=== PATIENT | male | born 1970 | race Two or more races ===

== ENCOUNTER 2023-07-04 18:11 | Inpatient (IN) | payer OTHER ==
[~2023-07-04] VITALS: Ht 175.3 cm; Wt 65.0 kg
[2023-07-04] MEDS ORDERED: LISI-894 PO (18:19)
[2023-07-04] MEDS ORDERED: SODIUM CHLORIDE 0.9% 2,000 ML IV ONE (20:30)
[2023-07-04] MEDS ORDERED: SODIUM CHLORIDE 0.9% 1,000 ML IV ONE (20:30)
[2023-07-04 20:57] LABS: BASOPHILS % (AUTO) 0.3 % (0.0-2.0); EOSINOPHILS % (AUTO) 0.4 % (1.0-6.0); HEMATOCRIT 30.5 % (41-53); HEMOGLOBIN 9.9 g/dL (13.5-17.5); LYMPHOCYTES # (AUTO) 0.8 K/uL (1.0-4.8); LYMPHOCYTES % (AUTO) 13.7 % (22.0-44.0); MEAN CORPUSCULAR HEMOGLOBIN 28.1 pg (26.0-34.0); MEAN CORPUSCULAR HGB CONC 32.4 G/dL (31.0-37.0); MEAN CORPUSCULAR VOLUME 87 fL (80-100); MONOCYTES # (AUTO) 0.4 K/uL (0.1-1.0); MONOCYTES % (AUTO) 7.1 % (2.0-9.0); NEUTROPHILS # (AUTO) 4.7 K/uL (1.8-7.7); NEUTROPHILS % (AUTO) 78.5 % (40.0-70.0); PLATELET COUNT (AUTO) 195 K/uL (150-450); RED BLOOD CELL COUNT(AUTO) 3.52 MIL/uL (4.50-5.90); RED CELL DISTRIBUTION WIDTH 16.2 % (11.5-14.5)
[2023-07-04 21:07] LABS: ANION GAP 9 mmol/L (8-16); CALCIUM, TOTAL 8.1 mg/dL (8.8-10.5); CARBON DIOXIDE 27 mmol/L (22-29); CHLORIDE 99 mmol/L (98-107); CREATININE 1.98 mg/dL (0.60-1.30); GLOMERULAR FILTR. RATE CALC 36 mL/min (>60); GLUCOSE,RANDOM 83 mg/dL (70-110); POTASSIUM 4.3 mmol/L (3.5-5.1); SODIUM SERUM 135 mmol/L (136-145); UREA NITROGEN, BLOOD 35 mg/dL (7-18)
[2023-07-04 21:11] LABS: B-TYPE NATRIURETIC PEPTIDE 19 pg/mL (0-100)
[2023-07-04 21:12] LABS: ALCOHOL, BLOOD (SERUM) < 3 mg/dL (0-10)
[2023-07-04 21:15] LABS: LACTIC ACID 1.6 mmol/L (0.4-2.0)
[2023-07-04 21:17] LABS: TROPONIN I-HIGH SENSITIVITY 90 ng/L (<76)
[2023-07-04 21:22] LABS: COVID AG,FIA SOURCE NASOPHARYNGEAL
[2023-07-04 21:29] LABS: ALANINE AMINOTRANSFERASE 18 U/L (12-78); ALBUMIN 2.8 g/dL (3.4-5.0); ALKALINE PHOSPHATASE 71 U/L (46-116); ASPARTATE AMINOTRANSFERASE 28 U/L (15-37); BILIRUBIN,TOTAL 0.3 mg/dL (0.1-1.0); CREATINE KINASE, TOTAL ONLY 781 U/L (39-308); LIPASE 37 U/L (16-77); TOTAL PROTEIN, SERUM 5.9 g/dL (6.4-8.2)
[2023-07-04 21:47] LABS: SARS-COV2 (COVID) ANTIGEN,FIA Negative (Negative)
[2023-07-04] MEDS ORDERED: ATORVASTATIN CALCIUM 40 MG TABLET PO ONE (23:00)
[2023-07-04] MEDS: ASPIRIN 81 MG CHEWABLE TABLET PO SCH (23:26)
[2023-07-04] MEDS: SODIUM CHLORIDE 0.9% 1,000 ML IV SCH (23:41)
[2023-07-05 00:12] LABS: APPEARANCE,URINE CLEAR (CLEAR); BILIRUBIN,URINE NEGATIVE (NEGATIVE); COLOR,URINE LIGHT YELLOW (YELLOW); GLUCOSE, URINE (UA) NEGATIVE (NEGATIVE); KETONES,URINE NEGATIVE (NEGATIVE); LEUKOCYTE ESTERASE ,URINE NEGATIVE (NEGATIVE); NITRATE,URINE NEGATIVE (NEGATIVE); OCCULT BLOOD,URINE NEGATIVE (NEGATIVE); PH,URINE 5.5 (5.0-8.0); PH,URINE DRUG SCREEN 5.5 (5.0-8.0); PROTEIN,URINE 30-70 mg/dL (NEGATIVE); SPECIFIC GRAVITIY, URINE 1.011 (1.003-1.030); UROBILINOGEN,URINE <=1.0 mg/dL (<=1.0)
[2023-07-05 00:14] LABS: CREATININE,URINE RANDOM 49.6 mg/dL (30.0-125.0)
[2023-07-05 00:19] LABS: ALCOHOL, URINE DRUG SCREEN NEGATIVE (NEGATIVE); AMPHET/METH SCREEN,URINE NEGATIVE (NEGATIVE); BARBITURATE SCREEN, URINE NEGATIVE (NEGATIVE); BENZODIAZEPINES SCREEN,URINE NEGATIVE (NEGATIVE); CANNABINOID SCREEN,URINE NEGATIVE (NEGATIVE); COCAINE SCREEN,URINE NEGATIVE (NEGATIVE); METHADONE SCREEN, URINE NEGATIVE (NEGATIVE); OPIATE SCREEN,URINE NEGATIVE (NEGATIVE); PHENCYCLIDINE SCREEN,URINE NEGATIVE (NEGATIVE)
[2023-07-05 00:25] LABS: BACTERIA,URINE None Seen /HPF (None Seen); RBC,URINE 0-2 /HPF (0-2); SQUAMOUS EPITHELIAL CELL,UR Few /LPF (None Seen); WBC,URINE 0-2 /HPF (0-5)
[2023-07-05 01:12] VITALS: BP 115/69; PULSE 67; RESP 17; TEMP 99.2
[2023-07-05 05:13] VITALS: BP 114/62; PULSE 65; RESP 18; TEMP 98.6
[2023-07-05 06:55] LABS: TROPONIN I-HIGH SENSITIVITY 125 ng/L (<76)
[2023-07-05 07:44] VITALS: BP 124/69; PULSE 60; RESP 18; TEMP 98.3
[2023-07-05] MEDS: ASPIRIN 81 MG CHEWABLE TABLET PO SCH (08:57)
[2023-07-05 11:57] VITALS: BP 140/79; PULSE 66; RESP 18; TEMP 98
[2023-07-05] MEDS: SODIUM CHLORIDE 0.9% 1,000 ML IV SCH (14:17)
[2023-07-05 16:05] VITALS: BP 137/82; PULSE 67; RESP 18; TEMP 97.8
[2023-07-05 19:32] VITALS: BP 147/83; PULSE 79; RESP 19; TEMP 99
[2023-07-05] MEDS ORDERED: ATORVASTATIN CALCIUM 40 MG TABLET PO SCH (21:00)
[2023-07-06 00:10] VITALS: BP 147/85; PULSE 61; RESP 16; TEMP 97.9
[2023-07-06 04:09] VITALS: BP 157/105; PULSE 68; RESP 17; TEMP 98.6
[2023-07-06 07:23] VITALS: BP 149/99; PULSE 78; RESP 18; TEMP 98.1
[2023-07-06] MEDS: ASPIRIN 81 MG CHEWABLE TABLET PO SCH (08:27)
[2023-07-06] MEDS ORDERED: AmLODIPine BESYLATE 5 MG TABLET PO SCH (10:45)
[2023-07-06] MEDS ORDERED: AMLO-257 PO (10:46)
[2023-07-06 11:18] VITALS: BP 146/81; PULSE 94; RESP 18; TEMP 98.1
[2023-07-06 11:29] LABS: ANION GAP 11 mmol/L (8-16); CALCIUM, TOTAL 8.1 mg/dL (8.8-10.5); CARBON DIOXIDE 26 mmol/L (22-29); CHLORIDE 102 mmol/L (98-107); CREATININE 0.84 mg/dL (0.60-1.30); GLOMERULAR FILTR. RATE CALC > 60 mL/min (>60); GLUCOSE,RANDOM 111 mg/dL (70-110); POTASSIUM 3.9 mmol/L (3.5-5.1); SODIUM SERUM 138 mmol/L (136-145); UREA NITROGEN, BLOOD 22 mg/dL (7-18)
[2023-07-06 11:38] LABS: TROPONIN I-HIGH SENSITIVITY 59 ng/L (<76)
[2023-07-06] MEDS: SODIUM CHLORIDE 0.9% 1,000 ML IV SCH (13:09)
[2023-07-06 15:57] VITALS: BP 153/93; PULSE 71; RESP 16; TEMP 98.1
== END 2023-07-06 18:53 | disposition home or self-care (01) | DRG 347 ==
LOC: EMS 18:13 → 5S 23:09
PROVIDERS: ADMIT Internal Medicine; ATTEND Internal Medicine
DX: M54.2 Cervicalgia (principal); N17.0 Acute kidney failure with tubular necrosis; I95.9 Hypotension, unspecified; F11.10 Opioid abuse, uncomplicated; I73.89 Other specified peripheral vascular diseases; Z20.822 Contact with and (suspected) exposure to COVID-19; R79.89 Other specified abnormal findings of blood chemistry; I10 Essential (primary) hypertension; F19.10 Other psychoactive substance abuse, uncomplicated; Z79.899 Other long term (current) drug therapy
CPT/HCPCS: 70450; 70490; 71045; 73200; 80048; 80053; 80307; 81001; 82550; 82570; 83605; 83690; 83880; 84300; 84484; 85025; 85651; 86140; 87040; 87081; 93005; 93306; 93930; 99291; G0480; J7030; 36415-L1; 36415-TC

== ENCOUNTER 2025-05-01 20:37 | Emergency (ER) | payer OTHER ==
[~2025-05-01] VITALS: Ht 175.3 cm; Wt 83.0 kg
[~2025-05-01 20:37] MED LIST: AMLO-257 PO
[2025-05-02] MEDS: DOXYCYCLINE HYCLATE 100 MG TABLET PO ONE (00:59)
[2025-05-02] MEDS ORDERED: DOXY-354 PO (01:07)
[2025-05-02 01:30] VITALS: BP 127/77; PULSE 88; RESP 18; TEMP 98.3; O2SAT 100
== END 2025-05-02 02:14 | disposition home or self-care (01) ==
LOC: EMS 20:41
DX: L03.211 Cellulitis of face (principal); L02.01 Cutaneous abscess of face; I10 Essential (primary) hypertension; Z79.899 Other long term (current) drug therapy; Z91.018 Allergy to other foods
CPT/HCPCS: 99283

== ENCOUNTER 2025-09-29 14:07 | Inpatient (IN) | payer OTHER ==
[~2025-09-29] VITALS: Ht 175.3 cm; Wt 60.9 kg
[~2025-09-29 14:07] MED LIST changes: +DOXY-354 PO
[2025-09-29 14:35] LABS: COVID AG,FIA SOURCE NASAL SWAB
[2025-09-29 14:47] LABS: PLATELET COUNT (AUTO) 339 K/uL (150-450); RED BLOOD CELL COUNT(AUTO) 4.71 MIL/uL (4.50-5.90); RED CELL DISTRIBUTION WIDTH 14.2 % (11.5-14.5); WHITE BLOOD COUNT (AUTO) 12.5 K/uL (4.5-11.0)
[2025-09-29 14:54] LABS: SARS-COV2 (COVID) ANTIGEN,FIA Negative (Negative)
[2025-09-29 14:55] LABS: INFLUENZA TYPE A NEGATIVE FOR TYPE A (NEGATIVE); INFLUENZA TYPE B NEGATIVE FOR TYPE B (NEGATIVE)
[2025-09-29 14:57] LABS: CALCIUM, TOTAL 8.7 mg/dL (8.8-10.5); CREATININE 0.75 mg/dL (0.60-1.30); GLOMERULAR FILTR. RATE CALC > 60 mL/min (>60); GLUCOSE,RANDOM 192 mg/dL (70-110); SODIUM SERUM 138 mmol/L (136-145); UREA NITROGEN, BLOOD 11 mg/dL (7-18)
[2025-09-29 15:01] LABS: ASPARTATE AMINOTRANSFERASE 25 U/L (15-37); TOTAL PROTEIN, SERUM 7.8 g/dL (6.4-8.2)
[2025-09-29 15:16] LABS: TROPONIN I-HIGH SENSITIVITY 14 ng/L (<76)
[2025-09-29 15:18] LABS: LACTIC ACID 2.8 mmol/L (0.4-2.0)
[2025-09-29 15:55] LABS: APPEARANCE,URINE CLEAR (CLEAR); GLUCOSE, URINE (UA) >=1000 mg/dL (NEGATIVE); LEUKOCYTE ESTERASE ,URINE NEGATIVE (NEGATIVE); NITRATE,URINE NEGATIVE (NEGATIVE); OCCULT BLOOD,URINE NEGATIVE (NEGATIVE); SPECIFIC GRAVITIY, URINE 1.030 (1.003-1.030)
[2025-09-29] MEDS: POTASSIUM CHLORIDE 20 MEQ ER TABLET PO ONE (15:55)
[2025-09-29] MEDS: CefTRIAXone 1 GM/DEXTROSE 50 ML IV ONE (15:55)
[2025-09-29] MEDS: AZITHROMYCIN 500 MG/NS 250 ML IV ONE (15:56)
[2025-09-29] MEDS: SODIUM CHLORIDE 0.9% 2,100 ML IV ONE (15:56)
[2025-09-29] MEDS ORDERED: HYDROCODONE/ACETAMINOPHEN 5-325 MG TABLET PO PRN (16:00)
[2025-09-29] MEDS ORDERED: POTASSIUM CHLORIDE 20 MEQ ER TABLET PO PRN (16:00)
[2025-09-29] MEDS ORDERED: POTASSIUM CHL 10 MEQ/WATER 50 ML IV PRN (16:00)
[2025-09-29] MEDS ORDERED: ONDANSETRON HCL 4 MG/2 ML VIAL IVP PRN (16:00)
[2025-09-29] MEDS ORDERED: MAGNESIUM HYDROXIDE SUSPENSION 30 ML UDCUP PO PRN (16:00)
[2025-09-29] MEDS ORDERED: BISACODYL 10 MG RECTAL RECTAL SUPPOSITORY PR PRN (16:00)
[2025-09-29] MEDS ORDERED: MORPHINE SULFATE 2 MG/ML SYRINGE IVP PRN (16:00)
[2025-09-29] MEDS ORDERED: MORPHINE SULFATE 4 MG/ML SYRINGE IVP PRN (16:03)
[2025-09-29 16:04] LABS: SQUAMOUS EPITHELIAL CELL,UR Few /LPF (None Seen)
[2025-09-29] MEDS: *CLINICAL-LEVOFLOXACIN IVPB DOSING CLINICAL ONE (16:04)
[2025-09-29] MEDS: HEPARIN SODIUM,PORCINE 5,000 UNITS/ML VIAL SQ SCH (16:34)
[2025-09-29] MEDS ORDERED: DOCU-385 PO (18:36)
[2025-09-29] MEDS ORDERED: BUPR1TAB46 SL (18:36)
[2025-09-29] MEDS ORDERED: ONDA-104 PO (18:36)
[2025-09-29] MEDS ORDERED: ACET-3385 PO (18:36)
[2025-09-29] MEDS ORDERED: LOPE-232 PO (18:36)
[2025-09-29] MEDS ORDERED: LISI-894 PO (18:36)
[2025-09-29] MEDS: DOCUSATE SODIUM 100 MG CAPSULE PO SCH (21:00)
[2025-09-29 23:15] VITALS: BP 154/93; PULSE 54; RESP 18; TEMP 97.7; O2SAT 97
[2025-09-30 03:29] VITALS: BP 160/112; PULSE 72; RESP 18; TEMP 98.1; O2SAT 98
[2025-09-30 07:07] LABS: PLATELET COUNT (AUTO) 389 K/uL (150-450); RED BLOOD CELL COUNT(AUTO) 4.90 MIL/uL (4.50-5.90); RED CELL DISTRIBUTION WIDTH 14.1 % (11.5-14.5); WHITE BLOOD COUNT (AUTO) 11.2 K/uL (4.5-11.0)
[2025-09-30 07:08] LABS: RBC MORPHOLOGY COMMENT NORMAL RBC MORPH
[2025-09-30 07:10] LABS: CALCIUM, TOTAL 8.7 mg/dL (8.8-10.5); CREATININE 0.65 mg/dL (0.60-1.30); GLOMERULAR FILTR. RATE CALC > 60 mL/min (>60); GLUCOSE,RANDOM 97 mg/dL (70-110); SODIUM SERUM 137 mmol/L (136-145); UREA NITROGEN, BLOOD 8 mg/dL (7-18)
[2025-09-30 07:30] VITALS: BP 161/99; PULSE 70; RESP 17; TEMP 98.1; O2SAT 96
[2025-09-30] MEDS: PANTOPRAZOLE SODIUM 40 MG DR TABLET PO SCH (09:18)
[2025-09-30 11:15] VITALS: BP 170/100; PULSE 55; RESP 24; TEMP 97; O2SAT 98
[2025-09-30] MEDS ORDERED: SODIUM CHLORIDE 0.9% 500 ML IV ONE (12:54)
[2025-09-30] MEDS: LEVOFLOXACIN 750 MG/D5% WATER 150 ML IV SCH (13:10)
[2025-09-30 13:58] VITALS: BP 155/97; RESP 19
[2025-09-30 16:02] LABS: PH,URINE DRUG SCREEN 8.0 (5.0-8.0)
[2025-09-30 16:12] LABS: ALCOHOL, URINE DRUG SCREEN NEGATIVE (NEGATIVE); AMPHET/METH SCREEN,URINE NEGATIVE (NEGATIVE); BARBITURATE SCREEN, URINE NEGATIVE (NEGATIVE); CANNABINOID SCREEN,URINE NEGATIVE (NEGATIVE); COCAINE SCREEN,URINE NEGATIVE (NEGATIVE); METHADONE SCREEN, URINE NEGATIVE (NEGATIVE)
[2025-09-30 19:41] VITALS: BP 162/99; PULSE 91; RESP 20; TEMP 97.7; O2SAT 98
[2025-09-30 23:53] VITALS: BP 162/104; PULSE 71; RESP 18; TEMP 98.8; O2SAT 100
[2025-10-01 05:25] VITALS: BP 160/106; PULSE 65; RESP 18; TEMP 98.1; O2SAT 98
[2025-10-01 06:58] LABS: PLATELET COUNT (AUTO) 438 K/uL (150-450); RED BLOOD CELL COUNT(AUTO) 4.77 MIL/uL (4.50-5.90); RED CELL DISTRIBUTION WIDTH 14.2 % (11.5-14.5); WHITE BLOOD COUNT (AUTO) 10.8 K/uL (4.5-11.0)
[2025-10-01 07:10] LABS: CALCIUM, TOTAL 8.8 mg/dL (8.8-10.5); CREATININE 0.66 mg/dL (0.60-1.30); GLOMERULAR FILTR. RATE CALC > 60 mL/min (>60); GLUCOSE,RANDOM 108 mg/dL (70-110); SODIUM SERUM 133 mmol/L (136-145); UREA NITROGEN, BLOOD 13 mg/dL (7-18)
[2025-10-01 07:37] LABS: RBC MORPHOLOGY COMMENT NORMAL RBC MORPH
[2025-10-01 08:51] VITALS: BP 157/94; PULSE 62; RESP 17; TEMP 97.9; O2SAT 97
[2025-10-01 19:52] VITALS: BP 157/98; PULSE 71; RESP 20; TEMP 98.1; O2SAT 97
[2025-10-02] VITALS: BP 155/102; PULSE 77; RESP 18; TEMP 98.2; O2SAT 99
[2025-10-02] MEDS: ZOLPIDEM TARTRATE 5 MG TABLET PO PRN (00:06)
[2025-10-02 05:36] VITALS: BP 158/101; PULSE 71; RESP 18; TEMP 97.9; O2SAT 98
[2025-10-02 07:12] LABS: PLATELET COUNT (AUTO) 489 K/uL (150-450); RED BLOOD CELL COUNT(AUTO) 5.01 MIL/uL (4.50-5.90); RED CELL DISTRIBUTION WIDTH 14.1 % (11.5-14.5); WHITE BLOOD COUNT (AUTO) 9.0 K/uL (4.5-11.0)
[2025-10-02 07:31] LABS: CALCIUM, TOTAL 9.1 mg/dL (8.8-10.5); CREATININE 0.73 mg/dL (0.60-1.30); GLOMERULAR FILTR. RATE CALC > 60 mL/min (>60); GLUCOSE,RANDOM 105 mg/dL (70-110); SODIUM SERUM 136 mmol/L (136-145); UREA NITROGEN, BLOOD 14 mg/dL (7-18)
[2025-10-02 08:30] VITALS: BP 152/96; PULSE 67; RESP 18; TEMP 97.5; O2SAT 97
[2025-10-02] MEDS ORDERED: SODIUM CHLORIDE 0.9% 250 ML IV ONE (13:13)
[2025-10-02 20:26] VITALS: BP 142/101; PULSE 88; RESP 18; TEMP 97.5; O2SAT 99
[2025-10-03 05:30] VITALS: BP 146/103; PULSE 92; RESP 18; TEMP 97.8; O2SAT 98
[2025-10-03 07:48] VITALS: BP 153/102; PULSE 91; RESP 20; TEMP 97.9; O2SAT 100
[2025-10-03 16:06] VITALS: BP 143/101
[2025-10-03 20:41] VITALS: BP 150/99; PULSE 93; RESP 18; TEMP 98.2; O2SAT 99
[2025-10-03 23:17] VITALS: BP 154/98; PULSE 80; RESP 18; O2SAT 99
[2025-10-04 05:29] VITALS: BP 146/96; PULSE 89; RESP 18; TEMP 98.2; O2SAT 99
[2025-10-04 08:21] VITALS: BP 149/95; PULSE 91; RESP 18; TEMP 98.1; O2SAT 98
[2025-10-04] MEDS: ACETAMINOPHEN 325 MG TABLET PO PRN (08:24)
[2025-10-04 12:01] VITALS: BP 155/95; PULSE 91; RESP 20; TEMP 98.3; O2SAT 98
[2025-10-04] MEDS ORDERED: AMLO-258 PO (12:25)
[2025-10-04] MEDS ORDERED: HYDR50TA36 PO (12:25)
[2025-10-04] MEDS ORDERED: PANT-31 PO (12:26)
[2025-10-04] MEDS ORDERED: LEVO750T68 PO (12:26)
[2025-10-04] MEDS: BUPRENORPHINE HCL/NALOXONE HCL 8-2 MG SUBLINGUAL TABLET SL ONE (12:40)
[2025-10-04 15:53] VITALS: BP 114/80; PULSE 84; RESP 18; TEMP 98.2; O2SAT 98
[2025-10-04 20:00] VITALS: BP 118/81; PULSE 80; RESP 16; TEMP 97.3; O2SAT 99
[2025-10-04 23:00] VITALS: BP 109/83; PULSE 81; RESP 18; O2SAT 99
[2025-10-05 04:00] VITALS: BP 122/86; PULSE 74; RESP 18; TEMP 97.5; O2SAT 99
[2025-10-05] MEDS: BUPRENORPHINE HCL/NALOXONE HCL 8-2 MG SUBLINGUAL TABLET SL SCH (08:04)
[2025-10-05 08:10] VITALS: BP 121/85; PULSE 62; RESP 18; TEMP 97.7; O2SAT 96
[2025-10-05 16:00] VITALS: BP 105/67; PULSE 67; RESP 18; O2SAT 99
[2025-10-05 20:30] VITALS: BP 112/77; PULSE 70; RESP 18; TEMP 97.7; O2SAT 98
[2025-10-06] VITALS: BP 118/87; PULSE 68
[2025-10-06 04:28] VITALS: BP 118/77; PULSE 65; RESP 18; TEMP 97.3; O2SAT 98
[2025-10-06 08:00] VITALS: BP 122/85; PULSE 68; RESP 20; TEMP 97.9; O2SAT 97
[2025-10-06 20:00] VITALS: BP 118/74; PULSE 78; RESP 18; TEMP 97.9; O2SAT 97
[2025-10-07 04:00] VITALS: BP 122/85; PULSE 69; RESP 18; TEMP 97.7; O2SAT 99
[2025-10-07 08:00] VITALS: BP 123/86; PULSE 64; RESP 20; TEMP 97.9; O2SAT 98
[2025-10-07 16:00] VITALS: BP 109/90; PULSE 75; RESP 20; TEMP 98.1; O2SAT 99
[2025-10-07 20:02] VITALS: BP 113/73; PULSE 71; RESP 19; TEMP 97.9; O2SAT 98
[2025-10-08 05:11] VITALS: BP 122/79; PULSE 66; RESP 18; TEMP 97.7; O2SAT 98
[2025-10-08 08:00] VITALS: BP 132/86; PULSE 78; RESP 18; TEMP 97.5; O2SAT 97
[2025-10-08 16:46] VITALS: BP 102/70; PULSE 61; RESP 18; TEMP 97.5; O2SAT 100
[2025-10-08 20:34] VITALS: BP 107/72; PULSE 84; RESP 19; TEMP 97.7; O2SAT 99
[2025-10-09] MEDS ORDERED: SODIUM CHLORIDE 3% 15 ML NEB SOLUTION NEB ONE (00:11)
[2025-10-09 00:30] VITALS: PULSE 68; RESP 20; O2SAT 99
[2025-10-09 04:46] VITALS: BP 113/86; PULSE 59; RESP 19; TEMP 97.5; O2SAT 97
[2025-10-09 08:00] VITALS: BP 123/82; PULSE 57; RESP 20; TEMP 97.5; O2SAT 98
[2025-10-09 13:12] LABS: MTB PCR w/Rif. Resistance-SPUT NOT DETECTED (Not Detectd)
[2025-10-09 20:30] VITALS: BP 111/70; PULSE 52; RESP 18; TEMP 98.4; O2SAT 97
[2025-10-09 23:31] VITALS: BP 119/89; PULSE 60; RESP 18; O2SAT 97
[2025-10-10 09:09] VITALS: BP 115/83; PULSE 67; RESP 18; TEMP 98.4; O2SAT 97
[2025-10-10 12:16] LABS: MTB PCR w/Rif. Resistance-SPUT NOT DETECTED (Not Detectd)
[2025-10-10 12:40] VITALS: PULSE 63; RESP 18; O2SAT 98
[2025-10-10 13:05] VITALS: PULSE 66; RESP 18; O2SAT 100
[2025-10-10 19:53] VITALS: BP 104/78; PULSE 76; RESP 18; TEMP 98.1; O2SAT 95
[2025-10-11 05:25] VITALS: BP 113/79; PULSE 67; RESP 18; TEMP 98.1; O2SAT 96
[2025-10-11 08:15] VITALS: BP 105/60; PULSE 77; RESP 19; TEMP 97.9; O2SAT 97
[2025-10-11 15:45] VITALS: BP 104/74; PULSE 67; RESP 18; TEMP 97.9; O2SAT 98
[2025-10-11 16:23] VITALS: BP 118/77; PULSE 67; RESP 18
[2025-10-11 17:07] LABS: QUANTIFERON+, Nil Value 0.02 IU/mL; QUANTIFERON+,Mitogen Value 2.86 IU/mL; QUANTIFERON+,TB1 Antigen Value 0.02 IU/mL; QUANTIFERON+,TB2 Antigen Value 0.02 IU/mL; QUANTIFERON, TB GOLD PLUS Negative (Negative)
[2025-10-11 20:00] VITALS: BP 107/70; PULSE 79; RESP 18; TEMP 97.9; O2SAT 97
[2025-10-12 04:00] VITALS: BP 114/81; PULSE 63; RESP 18; TEMP 97.9; O2SAT 96
[2025-10-12 08:22] VITALS: BP 111/81; PULSE 58; RESP 18; TEMP 97.5; O2SAT 98
[2025-10-12 19:35] VITALS: BP 116/76; PULSE 68; RESP 18; TEMP 98.4; O2SAT 98
[2025-10-13 05:33] VITALS: BP 114/82; PULSE 60; RESP 18; TEMP 97.7; O2SAT 98
[2025-10-13 08:26] VITALS: BP 111/69; PULSE 75; RESP 19; TEMP 97.6; O2SAT 98
[2025-10-13 20:01] VITALS: BP 105/72; PULSE 71; RESP 18; TEMP 98.4; O2SAT 98
[2025-10-14 05:32] VITALS: BP 105/70; PULSE 61; RESP 18; TEMP 97.9; O2SAT 98
[2025-10-14 08:00] VITALS: BP 111/80; PULSE 57; RESP 19; TEMP 98.2; O2SAT 97
[2025-10-14 19:35] VITALS: BP 110/76; PULSE 62; RESP 16; TEMP 97.5; O2SAT 96
[2025-10-15 05:45] VITALS: BP 112/79; PULSE 59; RESP 17; TEMP 97.9; O2SAT 98
[2025-10-15 08:09] VITALS: BP 121/69; PULSE 78; RESP 18; TEMP 98.8; O2SAT 98
[2025-10-15 12:04] VITALS: BP 104/70; PULSE 59; RESP 17; TEMP 98.1; O2SAT 98
[2025-10-15 16:09] VITALS: BP 109/70; PULSE 68; RESP 18; TEMP 98.2; O2SAT 97
[2025-10-15 20:00] VITALS: BP 108/69; PULSE 69; RESP 18; TEMP 97.9; O2SAT 97
[2025-10-16 04:00] VITALS: BP 110/85; PULSE 70; RESP 18; TEMP 97.7; O2SAT 98
[2025-10-16 08:00] VITALS: BP 107/78; PULSE 60; RESP 20; TEMP 97.9; O2SAT 95
[2025-10-16 20:19] VITALS: BP 110/71; PULSE 66; RESP 18; TEMP 98; O2SAT 99
[2025-10-17 05:25] VITALS: BP 99/72; PULSE 56; RESP 17; TEMP 97.9; O2SAT 99
[2025-10-17 08:00] VITALS: BP 104/72; PULSE 62; RESP 17; TEMP 97.6; O2SAT 100
[2025-10-17 12:52] LABS: PLATELET COUNT (AUTO) 221 K/uL (150-450); RED BLOOD CELL COUNT(AUTO) 4.40 MIL/uL (4.50-5.90); RED CELL DISTRIBUTION WIDTH 14.2 % (11.5-14.5); WHITE BLOOD COUNT (AUTO) 4.2 K/uL (4.5-11.0)
[2025-10-17 13:01] LABS: CALCIUM, TOTAL 8.8 mg/dL (8.8-10.5); CREATININE 0.71 mg/dL (0.60-1.30); GLOMERULAR FILTR. RATE CALC > 60 mL/min (>60); GLUCOSE,RANDOM 110 mg/dL (70-110); SODIUM SERUM 136 mmol/L (136-145); UREA NITROGEN, BLOOD 16 mg/dL (7-18)
[2025-10-17 20:43] VITALS: BP 111/74; PULSE 65; RESP 17; TEMP 98.6; O2SAT 96
[2025-10-18 04:54] VITALS: BP 131/83; PULSE 55; RESP 18; TEMP 98; O2SAT 98
[2025-10-18 08:00] VITALS: BP 102/76; PULSE 55; RESP 20; TEMP 97.7; O2SAT 98
[2025-10-18 20:41] VITALS: BP 108/69; PULSE 60; RESP 18; TEMP 98; O2SAT 98
[2025-10-19 06:01] VITALS: BP 103/65; PULSE 58; RESP 19; TEMP 98.2; O2SAT 99
[2025-10-19 08:51] VITALS: BP 102/68; PULSE 62; RESP 18; TEMP 98; O2SAT 98
[2025-10-19 14:55] LABS: PLATELET COUNT (AUTO) 154 K/uL (150-450); RED BLOOD CELL COUNT(AUTO) 4.23 MIL/uL (4.50-5.90); RED CELL DISTRIBUTION WIDTH 14.7 % (11.5-14.5); WHITE BLOOD COUNT (AUTO) 3.1 K/uL (4.5-11.0)
[2025-10-19 15:06] LABS: CALCIUM, TOTAL 8.4 mg/dL (8.8-10.5); CREATININE 0.69 mg/dL (0.60-1.30); GLOMERULAR FILTR. RATE CALC > 60 mL/min (>60); GLUCOSE,RANDOM 104 mg/dL (70-110); SODIUM SERUM 138 mmol/L (136-145); UREA NITROGEN, BLOOD 19 mg/dL (7-18)
[2025-10-19 15:13] LABS: ASPARTATE AMINOTRANSFERASE 22 U/L (15-37); TOTAL PROTEIN, SERUM 6.5 g/dL (6.4-8.2)
[2025-10-19] MEDS: PYRAZINAMIDE 500 MG TABLET PO SCH (15:33)
[2025-10-19] MEDS: ISONIAZID 300 MG TABLET PO SCH (15:33)
[2025-10-19] MEDS: PYRIDOXINE HCL 50 MG TABLET PO SCH (15:33)
[2025-10-19] MEDS: ETHAMBUTOL HCL 400 MG TABLET PO SCH (15:34)
[2025-10-19 20:15] VITALS: BP 131/93; PULSE 62; RESP 18; TEMP 98.1; O2SAT 98
[2025-10-20 06:00] VITALS: BP 102/67; PULSE 53; RESP 18; TEMP 97.4; O2SAT 97
[2025-10-20 09:00] VITALS: BP 113/76; PULSE 77; RESP 18; TEMP 98.2; O2SAT 98
[2025-10-20 20:00] VITALS: BP 124/87; PULSE 71; RESP 18; TEMP 98.2; O2SAT 96
[2025-10-21 04:00] VITALS: BP 111/72; PULSE 51; RESP 18; TEMP 97.7; O2SAT 96
[2025-10-21 20:11] VITALS: BP 111/71; PULSE 65; RESP 17; TEMP 97.9; O2SAT 97
[2025-10-22 05:18] VITALS: BP 103/76; PULSE 54; RESP 17; TEMP 97.9; O2SAT 98
[2025-10-22 08:11] VITALS: BP 103/79; PULSE 56; RESP 19; TEMP 98.6; O2SAT 97
[2025-10-22 20:54] VITALS: BP 103/64; PULSE 58; RESP 18; TEMP 98.2; O2SAT 95
[2025-10-23 06:37] VITALS: BP 107/67; PULSE 55; RESP 18; TEMP 98.1; O2SAT 98
[2025-10-23 08:50] VITALS: BP 106/67; PULSE 57; RESP 18; TEMP 98.1; O2SAT 100
[2025-10-23 17:01] VITALS: BP 101/65; PULSE 55; RESP 18; TEMP 98.1; O2SAT 100
[2025-10-23 20:45] VITALS: BP 107/61; PULSE 56; RESP 18; TEMP 98.1; O2SAT 100
[2025-10-24 06:26] VITALS: BP 105/72; PULSE 50; RESP 18; TEMP 97.7; O2SAT 98
[2025-10-24 07:23] LABS: BAND NEUTROPHILS % (MANUAL) 0 % (0-5)
[2025-10-24 07:27] LABS: PLATELET COUNT (AUTO) 139 K/uL (150-450); RED BLOOD CELL COUNT(AUTO) 4.25 MIL/uL (4.50-5.90); RED CELL DISTRIBUTION WIDTH 15.4 % (11.5-14.5); WHITE BLOOD COUNT (AUTO) 3.8 K/uL (4.5-11.0)
[2025-10-24 07:49] LABS: ASPARTATE AMINOTRANSFERASE 16 U/L (15-37); CALCIUM, TOTAL 8.8 mg/dL (8.8-10.5); CREATININE 0.92 mg/dL (0.60-1.30); GLOMERULAR FILTR. RATE CALC > 60 mL/min (>60); GLUCOSE,RANDOM 89 mg/dL (70-110); SODIUM SERUM 139 mmol/L (136-145); TOTAL PROTEIN, SERUM 7.0 g/dL (6.4-8.2); UREA NITROGEN, BLOOD 17 mg/dL (7-18)
[2025-10-24 08:19] VITALS: BP 111/79; PULSE 56; RESP 18; TEMP 97.5; O2SAT 99
[2025-10-24 09:17] LABS: EOSINOPHILS % (MANUAL) 1 % (1-6); LYMPHOCYTES % (MANUAL) 16 % (22-44); MONOCYTES % (MANUAL) 6 % (2-9); SEGMENTED NEUTROPHILS % 77 % (40-70)
[2025-10-24 20:11] VITALS: BP 116/72; PULSE 75; RESP 18; TEMP 98.1; O2SAT 100
[2025-10-25 04:53] VITALS: BP 120/75; PULSE 65; RESP 18; TEMP 97.7; O2SAT 98
[2025-10-25 08:34] VITALS: BP 116/71; PULSE 70; RESP 18; TEMP 98.3; O2SAT 99
[2025-10-25 19:50] VITALS: BP 118/72; PULSE 62; RESP 18; TEMP 97.9; O2SAT 98
[2025-10-26 04:20] VITALS: BP 106/75; PULSE 61; RESP 18; TEMP 97.7; O2SAT 99
[2025-10-26 08:08] VITALS: BP 109/70; PULSE 68; RESP 19; TEMP 97.8; O2SAT 98
== END 2025-10-26 12:30 | DRG 871 ==
LOC: EMS 14:07 → EDH 15:45 → 5S 23:05 → 4S 09-30 11:00
PROVIDERS: ADMIT Internal Medicine; ATTEND Internal Medicine
DX: A41.9 Sepsis, unspecified organism (principal); J18.9 Pneumonia, unspecified organism; A15.0 Tuberculosis of lung; F11.10 Opioid abuse, uncomplicated; I10 Essential (primary) hypertension; F19.10 Other psychoactive substance abuse, uncomplicated; R91.1 Solitary pulmonary nodule; M48.061 Spinal stenosis, lumbar region without neurogenic claudication; Z20.822 Contact with and (suspected) exposure to COVID-19; Z79.899 Other long term (current) drug therapy; Z91.010 Allergy to peanuts; Z91.018 Allergy to other foods
CPT/HCPCS: 71045; 71046; 71250; 80048; 80053; 80307; 81001; 83605; 83880; 84132; 84145; 84484; 85007; 85025; 85027; 85610; 86480; 87015; 87040; 87081; 87206; 87389; 87556; 87804; 93005; 94640; 94760; 99291; G0378; J0360; J0456; J0696; J1644; J1956; J7040; J7050; 36415-L1; 36415-TC